=== PATIENT | female | born 1985 | race Two or more races ===

== ENCOUNTER 2024-07-31 19:48 | Emergency (ER) | payer OTHER ==
[~2024-07-31] VITALS: Ht 157.5 cm; Wt 52.6 kg
[2024-07-31] MEDS ORDERED: FAMOTIDINE/PF 20 MG/2 ML VIAL IV PUSH ONE (20:30)
[2024-07-31] MEDS ORDERED: 0.9 % SODIUM CHLORIDE 1,000 ML IV ONE (20:30)
[2024-07-31] MEDS ORDERED: ONDANSETRON HCL 2 MG/ML VIAL IV ONE (20:30)
[2024-07-31] MEDS ORDERED: KETOROLAC TROMETHAMINE 15 MG VIAL IV ONE (20:30)
[2024-07-31 20:49] LABS: HEMATOCRIT 33.7 % (36.0-45.00); HEMOGLOBIN 11.6 g/dL (12.0-15.00); MEAN CELL VOLUME 85.4 fL (80.00-100.00); MEAN CORPUSCULAR HEMOGLOBIN 29.3 pg (27.00-32.0); MEAN CORPUSCULAR HGB CONC 34.3 g/dl (32.0-36.0); PLATELET COUNT 239 K/uL (150-450); RED BLOOD COUNT 3.94 M/uL (4.00-6.00); RED CELL DISTRIBUTION WIDTH 13.4 % (11.5-14.5)
[2024-07-31 21:11] LABS: ALKALINE PHOSPHATASE 46 U/L (50-136); ALT/SGPT 15 U/L (12-78); ANION GAP 9 (10.0-20.0); AST/SGOT 11 U/L (15-37); BILIRUBIN TOTAL 0.48 mg/dL (0.3-1.2); BLOOD UREA NITROGEN 13 mg/dL (7-18); BUN CREA RATIO 18 (7.0-25.0); CALCIUM 8.9 mg/dL (8.5-10.1); CARBON DIOXIDE 26 mEq/L (21-32); CHLORIDE 107 mmol/L (98-107); CREATININE SERUM 0.72 mg/dL (0.55-1.02); GFR 90.18; GLOBULINA 3.9 G/DL (2.4-3.5); GLUCOSE FASTING 95 mg/dL (65-100); OSMOLALITY SERUM 276 MOSM/KG (275-295); POTASSIUM 3.93 mEq/L (3.5-5.1); SODIUM 138 mmol/L (136-145); TOTAL PROTEIN 7.9 gm/dL (6.4-8.2)
[2024-07-31 21:12] LABS: HCG QUANTITATIVE < 1 mUI/mL (1-3)
[2024-07-31 21:14] LABS: URINE APPEARANCE Clear; URINE BILIRRUBIN Negative (NEGATIVE); URINE BLOOD Large; URINE COLOR Yellow; URINE GLUCOSE Negative (NEGATIVE); URINE KETONE Negative (NEGATIVE); URINE LEUKOCYTE Trace; URINE NITRATE Negative; URINE PROTEIN Negative (NEGATIVE); URINE UROBILINOGEN 0.2 E.U./dl
[2024-07-31 21:18] LABS: URINE BACTERIA 670.2 uL (0.0-1933); URINE EPITHELIAL CELLS 7.7 uL (0.0-38.8); URINE RBC 656.8 uL (0.0-20.8); URINE WBC 36.3 uL (0.0-23.2)
[2024-08-01] MEDS ORDERED: NABUMETONE750 MG PO (02:50)
[2024-08-01] MEDS ORDERED: PEPCID40 MG PO (02:50)
== END 2024-08-01 02:58 ==
LOC: ER 19:49
PROVIDERS: General Practice
DX: D21.9 Benign neoplasm of connective and other soft tissue, unspecified (principal); R10.31 Right lower quadrant pain